=== PATIENT | male | born 1955 | race Two or more races ===

== ENCOUNTER 2020-08-13 21:02 | Emergency (ER) | payer OTHER, SELFPAY ==
[2020-08-13 21:03] VITALS: BP 155/101; PULSE 99; RESP 16; TEMP 36.6; O2SAT 96; BMI 25.9
--- NOTE | 2020-08-13 21:18 | XR_ITS ---
PROCEDURE: XR SHOULDER LT MIN 2V CLINICAL INDICATION: fall Pain COMPARISON: No exams were available for comparison FINDINGS: No fracture or dislocation. No lytic or blastic change. There is normal mineralization. Mild osteoarthritic changes are present at the acromioclavicular and glenohumeral joint. Other findings:None. IMPRESSION: No acute findings. Dictated by: Zion Harris MD 08/14/2020 07:13 Zion Harris MD in [place] 08/14/2020 07:13
--- NOTE | 2020-08-13 21:18 | XR_ITS ---
PROCEDURE: XR WRIST LT MIN 3V CLINICAL INDICATION: fall Pain COMPARISON: CR XR HAND LT MIN 3V from 08/13/2020 CR XR FOREARM LT 2V from 08/13/2020 FINDINGS: A 5 x 2 mm bony fragment is present along the dorsal and mid aspect of the wrist consistent with avulsion fracture of the triquetrum. It is displaced dorsally by approximately 2 mm. There are mild osteoarthritic changes of the wrist and hand. A cyst is present involving the lunate at 5 mm. Small calcific densities are present on both sides of the DIP joint of the 3rd finger and could be due to old avulsion fractures versus periarticular calcification. No acute fracture of the radius or ulna at the forearm.. IMPRESSION: Mildly displaced avulsion fracture of the triquetrum Other nonacute findings as described above Dictated by: Zion Harris MD 08/14/2020 07:17 Zion Harris MD in [place] 08/14/2020 07:17
--- NOTE | 2020-08-13 21:20 | HMH.EDGENADL ---
ED Disposition Clinical Impression: Occult closed fracture of scaphoid of left wrist Qualifiers: Encounter type: initial encounter Qualified Code(s): S62.002A - Unspecified fracture of navicular [scaphoid] bone of left wrist, initial encounter for closed fracture Disposition: Home, Self-Care Condition on Discharge: Fair Instructions: DI for Wrist Strain, Sprain, DI for Wrist Fracture Additional Instructions: Hours and ibuprofen every 6 hours for your pain Please call the orthopedic clinic on Saturday to make an appointment for repeat x-rays in 2 to 3 weeks If symptoms worsen, please return to the ED or follow-up with your PCP [place] tyelnol 500mg cada 4 horas y ibuprofen (motrin) cada 6 horas para gonzales dolor Por favor llame a la clinica ortopediasta el para hacer char para repetir teo x en 2-3 semanas si sintomas empeoran, por favor regrese a la fatemeh de emergencia o a gonzales doctor primario Referrals: James Maguire MD [Primary Care Provider] - Forms: Work/School Release - Critical Care Critical Care Time: No Attestation: On 08/13/20, the high probability of a clinically significant, sudden or life threatening deterioration of the following system(s) required my full and direct attention, intervention and personal management. The time I documented below is in addition to time spent performing reported procedures but includes the following listed in this critical care notation. Medical Decision Making - Medical Records Medical records reviewed: Yes: I reviewed the patient's medical records. - Lewis Inquiry Pt receiving controlled substance: No Vital Signs: 08/13/20 21:03 Temperature 97.8 F Temperature Source Oral Pulse Rate [Left Radial] 99 H Respiratory Rate 16 Blood Pressure [Right Arm] 155/101 H Blood Pressure Mean [Right Arm] 119 Blood Pressure Source [Right Arm] Automatic Cuff Blood Pressure Position [Right Arm] Sitting 02 Sat by Pulse Oximetry 96 Oxygen Delivery Method Room Air Orders (Tests/Meds): ED MEDICATIONS Discontinued Medications Generic Name Dose Route Start Last Admin Trade Name Freq PRN Reason Stop Dose Admin Acetaminophen 1,000 mg 08/13/20 21:18 Acetaminophen 500mg Tab PO 08/13/20 21:19 ONCE ONE Ibuprofen 600 mg 08/13/20 21:20 Ibuprofen 600 Mg Tablet PO 08/13/20 21:21 ONCE ONE ORDERS Category Date Time Status XR forearm LT 2V Stat Exams 08/13/20 21:18 Taken XR hand LT min 3V Stat Exams 08/13/20 21:18 Taken XR shoulder LT min 2V Stat Exams 08/13/20 21:18 Taken XR wrist LT min 3V Stat Exams 08/13/20 21:18 Taken Medical Decision Narrative: Upon presentation, patient is hemodynamically stable and nontoxic-appearing. Patient presents with left wrist injury. Differential diagnosis includes but is not limited to distal radius fracture, ulnar fracture, soft tissue contusion, scaphoid fracture. X-rays of the left shoulder, forearm, wrist, hand were obtained. Patient was given 1000 mg p.o. Tylenol and 600 mg p.o. ibuprofen for pain relief. I reviewed images. I did not identify any signs of a distal radius fracture, distal ulnar fracture, ulnar styloid fracture, shoulder injury. However, patient is tender to the scaphoid. As such, patient was placed in a wrist brace and discharged with orthopedic follow-up. I explained to the patient the need for repeat x-rays in 2 to 3 weeks. Patient was agreeable to plan. General Adult HPI - General Chief complaint: Extremity Injury, Upper Stated complaint: AO fell injured L hand Time Seen by Provider: 08/13/20 21:05 Mode of Arrival: Ambulatory Limitations: No Limitations Description of Symptoms (Recalled from ER Triage Doc. by RN): Pt reports slipping on wet floor and landing on left wrist. He c/o pain to left wrist and shoulder. No deformity present. Pt denies hitting head. - History of Present Illness HPI narrative: Patient is a 65-year-old male presenting after a fall. Patient states t
[2020-08-13 22:03] VITALS: BP 148/98; PULSE 89; RESP 16; TEMP 36.6; O2SAT 98
== END 2020-08-13 22:04 | disposition home or self-care (01) ==
PROVIDERS: Emergency Provider Emergency Medicine; PCP Family Medicine
DX: S62.002A Unspecified fracture of navicular [scaphoid] bone of left wrist, initial encounter for closed fracture (principal); W01.0XXA Fall on same level from slipping, tripping and stumbling without subsequent striking against object, initial encounter; Y92.89 Other specified places as the place of occurrence of the external cause; I10 Essential (primary) hypertension; F33.1 Major depressive disorder, recurrent, moderate; Z79.899 Other long term (current) drug therapy
CPT/HCPCS: 73030; 73090; 73110; 73130; 99282

== ENCOUNTER → 2020-09-09 08:44 | Outpatient (CLI) | payer OTHER, SELFPAY ==
--- NOTE | 2020-09-09 08:52 | XR_ITS ---
PROCEDURE: XR WRIST LT MIN 3V CLINICAL INDICATION: Left wrist fracture follow up COMPARISON: CR XR WRIST LT MIN 3V from 08/13/2020 FINDINGS: Triquetrum avulsion fracture fragment noted at the mid wrist region dorsally unchanged. No change in the small lunate cyst. The joint spaces are well-preserved. No significant degenerative/arthritic changes. No erosive changes evident. Other findings:None. IMPRESSION: No change triquetrum avulsion fracture Dictated by: Zion Harris MD 09/09/2020 12:33 Zion Harris MD in [place] 09/09/2020 12:33
== END ==
PROVIDERS: Visit Provider Orthopaedic Surgery
DX: S62.102A Fracture of unspecified carpal bone, left wrist, initial encounter for closed fracture (principal)
CPT/HCPCS: 73110

== ENCOUNTER 2020-09-09 09:37 | Outpatient (RCR) | payer OTHER, SELFPAY | END 2020-09-09 10:45 | disposition home or self-care (01) | LOC: OT 09:37 | PROVIDERS: Visit Provider Orthopaedic Surgery | DX: S62.92XA Unspecified fracture of left hand, initial encounter for closed fracture (principal) | CPT/HCPCS: 97763 ==

== ENCOUNTER 2020-10-07 11:00 | Outpatient (RCR) | payer OTHER, SELFPAY ==
--- NOTE | 2020-09-14 15:00 | HMH.OTOPEV ---
OT Inpatient Evaluation Rehab OT Outpatient Eval Start: 09/14/20 14:30 Freq: Status: Active Protocol: Document 09/14/20 14:35 DEMARCONAE (Rec: 09/14/20 14:51 WILYMAE [id number]) Electronically Signed By Chica Polo OT 09/14/20 14:35 Outpatient Therapy Subjective History Subjective History 65 year old male referred to skilled OP OT for left wrist fracture and left shoulder pain. Patient verbalize having a fall at work, unknown date. 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 Relieved By OTC Meds Symptoms Aggravated By Physical Activity Prior Functional Limitations None Current Functional Limitations Reaching,Lifting,Recreation Activity Symptom Description Constant and Continuous Level of pain today (0-10) 5 Pain scale - at its best (0-10) 5 Pain scale - at its worst (0-10) 5 Shoulder/Elbow Eval Shoulder Objective Measurements Shoulder ROM Left Shoulder Abduction Active Range of 80 Motion (degrees) Shoulder Flexion Active Range of Motion 70 (degrees) Query Text: Shoulder External Rotation Active Range 50 of Motion (degrees) Shoulder Internal Rotation Active Range 40 of Motion (degrees) pain with active ROM shoulder exam left standard Shoulder MMT Shoulder Abduction Strength Grade 2+ Poor+ Shoulder Extension Strength Grade 2+ Poor+ Shoulder Flexion Strength Grade 2+ Poor+ Shoulder Horizontal Abduction Strength 2+ Poor+ Grade Shoulder Horizontal Adduction Strength 2+ Poor+ Grade Infraspinatus/Teres Minor Strength Grade 2+ Poor+ Shoulder External Rotation Strength 2+ Poor+ Grade Shoulder Internal Rotation Strength 2+ Poor+ Grade Shoulder Special Tests impingement sign present shoulder exam left standard Shoulder Etsevez-Kirby Impingement Positive Left Test Elbow Objective Measurements Wrist/Hand Eval Wrist Range of Motion Left Wrist Extension Active Range of Motion ( 45 degrees) Wrist Flexion Active Range of Motion ( 50 degrees) Wrist Radial Deviation Active Range of 10 Motion (degrees) Wrist Ulnar Deviation Active Range of 20 Motion (degrees) Forearm Supination Active Range of 90 Motion (degrees) Forearm Pronation Active Range of Motion 90 (degrees) Tent Assembler/Pinch Strength Right Tent Assembler Strength Measurement (lbs) 80 Left Tent Assembler Strength Measurement (lbs) 35
== END 2020-10-07 11:05 | disposition home or self-care (01) ==
LOC: OT 11:00
PROVIDERS: Visit Provider Orthopaedic Surgery
DX: S62.92XA Unspecified fracture of left hand, initial encounter for closed fracture (principal); M25.512 Pain in left shoulder
CPT/HCPCS: 97014; 97110; 97140; 97165; 97530; G0283

== ENCOUNTER → 2020-10-11 13:48 | Outpatient (CLI) | payer OTHER, SELFPAY ==
--- NOTE | 2020-10-11 13:54 | XR_ITS ---
PROCEDURE: XR WRIST LT MIN 3V CLINICAL INDICATION: LT wrist fracture Follow-up fracture COMPARISON: CR XR WRIST LT MIN 3V from 08/13/2020 CR XR WRIST LT MIN 3V from 09/09/2020 FINDINGS: Previously noted avulsion fracture along the dorsal aspect of the wrist of the triquetrum is less apparent but could be related to the degree of rotation. There is a small triangular shaped density along the dorsal aspect of the wrist overlying the bony structures likely related to the avulsion fracture. No other significant anomalies are evident. Cystic lesion of the lunate once again noted unchanged. IMPRESSION: Triquetrum avulsion fracture fragment is less apparent but may be related to the degree of wrist rotation. Continued follow-up suggested Dictated by: Zion Harris MD 10/11/2020 15:38 Zion Harris MD in [place] 10/11/2020 15:38
== END ==
PROVIDERS: Visit Provider Orthopaedic Surgery
DX: S62.102A Fracture of unspecified carpal bone, left wrist, initial encounter for closed fracture (principal)
CPT/HCPCS: 73110

== ENCOUNTER → 2020-10-18 14:29 | Outpatient (CLI) | payer OTHER, SELFPAY ==
--- NOTE | 2020-10-18 14:36 | MR_ITS ---
PROCEDURE INFORMATION: Exam: MR Left Upper Extremity Joint Without Contrast; Shoulder Exam date and time: 10/18/2020 2:36 PM Age: 65 years old Clinical indication: Injury or trauma; Work related; Crushing; Arm, upper; Left; Injury date: About 2 months ago; Patient HX: Patient feel at work, pain in shoulder since fall---. Pain x 2 months---. Unable to raise arm---. Weakness---. No prior; Additional info: Evaluate for rotator cuff TECHNIQUE: Imaging protocol: MR of the Left upper extremity without contrast. Exam focused on the shoulder. COMPARISON: No relevant prior studies available. FINDINGS: Bones and cartilage: Type 2 acromion with curved undersurface and no subacromial enthesophyte. No os acromiale. Humeral head cysts located laterally measuring 14 mm. No concerning marrow signal alterations. No muscle atrophy. Line neurovascular structures are grossly unremarkable. Joint spaces: Hypertrophic degenerative changes of the acromioclavicular joint. Moderate amount of fluid within the acromioclavicular joint. Large amount of glenohumeral joint fluid with synovitis. No gross labral tearing. Long head of the biceps tendon is normal in position and appearance. Glenoid labrum: See Joint spaces finding. Supraspinatus tendon: Full thickness full width tear of the supraspinatus tendon with differential retraction of the torn tendon fibers. This extends to involve the anterior most fibers of the infraspinatus tendon. Infraspinatus tendon: Otherwise predominantly high-grade partial-thickness tearing of the infraspinatus tendon. Subscapularis tendon: Unremarkable. No evidence of tear. Teres minor tendon: Unremarkable. No evidence of tear. Tendon of biceps brachii: See Joint spaces finding. Glenohumeral ligaments: Unremarkable. Muscles: See Bones and cartilage finding. Soft tissues: See Bones and cartilage finding. IMPRESSION: 1. Full thickness full width tear of the supraspinatus tendon with differential retraction of the torn tendon fibers. This extends to involve the anterior most fibers of the infraspinatus tendon. 2. Otherwise predominantly high-grade partial-thickness tearing of the infraspinatus tendon. 3. Large glenohumeral joint effusion with synovitis. 4. Moderate to severe hypertrophic degenerative changes of the acromioclavicular joint.
== END ==
PROVIDERS: Visit Provider Orthopaedic Surgery
DX: S49.92XD Unspecified injury of left shoulder and upper arm, subsequent encounter (principal); Y99.0 Civilian activity done for income or pay
CPT/HCPCS: 73221

== ENCOUNTER 2021-01-18 14:00 | Outpatient (RCR) | payer OTHER, SELFPAY ==
--- NOTE | 2020-11-11 15:51 | HMH.OTOPEV ---
OT Inpatient Evaluation Rehab OT Outpatient Eval Start: 11/11/20 14:58 Freq: Status: Active Protocol: Document 11/11/20 15:44 [facility] (Rec: 11/11/20 15:51 [facility] [id number]) Electronically Signed By Vasquez Lopez OT 11/11/20 15:44 Outpatient Therapy Subjective History Subjective History Pt is a 65 year old male who reports to therapy for initial evaluation to Left shoulder. Pt fell at work on 08/19/20 resulting in L wrist fx and L shoulder injury. Pt was seen previously for left wrist injury. However, pt's pain in left shoulder has progressively become worse. Pt did see ortho and received a MRI diagnosing him with a full thickness tear of supraspintatus and a partial tear of infraspinatus. Pt does demosntrates with decreased AROM and strength at left shoulder. Pt will continue to be seen in order to address all deficits. 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,Stiff,Weakness Symptom Type Ache,Throb,Sharp,Dull Symptoms Relieved By Nothing Symptoms Aggravated By Physical Activity,Lifting Prior Functional Limitations None Current Functional Limitations Reaching,Lifting,Housework, Sleeping,Recreation Activity Symptom Description Constant but Variable Level of pain today (0-10) 7 Pain scale - at its best (0-10) 5 Pain scale - at its worst (0-10) 8 Shoulder/Elbow Eval Shoulder Objective Measurements Shoulder ROM Left Shoulder Abduction Active Range of 115 degrees Motion (degrees) Shoulder Flexion Active Range of Motion 130 degrees (degrees) Query Text: Shoulder External Rotation Active Range 70 degrees of Motion (degrees) Shoulder Internal Rotation Active Range 50 degrees of Motion (degrees) Shoulder MMT Shoulder Abduction Strength Grade 3+ Fair+ Shoulder Extension Strength Grade 3+ Fair+ Shoulder Flexion Strength Grade 3+ Fair+ Shoulder External Rotation Strength 3+ Fair+ Grade Shoulder Internal Rotation Strength 3+ Fair+ Grade Shoulder Strength Patient Testing Sitting Position Elbow Objective Measurements OT Outpatient Assessment Prognosis Rehab Potential
--- NOTE | 2020-12-14 15:47 | HMH.RHREAS ---
Rehab Reassessment Rehab OP Re-assessment Start: 12/14/20 15:40 Freq: Status: Active Protocol: Document 12/14/20 15:41 BLANCA (Rec: 12/14/20 15:47 BLANCA [id number]) Electronically Signed By Vasquez Lopez OT 12/14/20 15:41 Rehab Re-assessment Subjective Subjective Still hurts bad. Objective Objective Notes Pt continues to be seen twice a week in order to address left shoulder deficits. Pt engages in L shoulder AROM, AAROM, and strengthening exercises. Modalities are provided in order to decrease pain/inflammation. Assessment Progress Assessment Slower Than Expected Assessment Notes Pt demonstrates minimal improvement since starting therapy. He is reporting pain at a 8/10 at worst. His AROM is still painful and limited. Strength has improved slightly. Pt does return to doctor on December 20 to be re -evaluated. Current AROM L shoulder Flex: 130 degrees Abd: 110 degrees ER: 90 degrees IR: 50 degrees Patient goals met ST and 5 Goals Not Met See below Revised Goals ST, 2, and 4 LT-5 Plan Plan Continue with OT plan of care at this time. Frequency of Therapy 2x's a week Duration of therapy 4 more weeks Time and Billing Re-Eval Time 10 Re-Eval Billing Units 1 PHYSICIAN CERTIFICATION: I certify the specified therapy services for Melchor Ley are required, authorized, and reviewed every 30 days.
--- NOTE | 2021-01-12 15:01 | HMH.RHREAS ---
Rehab Reassessment Rehab OP Re-assessment Start: 12/14/20 15:40 Freq: Status: Active Protocol: Document 01/12/21 14:50 DEMARCONAE (Rec: 01/12/21 14:52 WILYMAE [id number]) Electronically Signed By Chica Polo OT 01/12/21 14:50 Rehab Re-assessment Subjective Subjective I have been using it a little bit. Objective Objective Notes Pt continues to be seen twice a week in order to address left shoulder deficits. Pt engages in L shoulder AROM, AAROM, and strengthening exercises. Modalities are provided in order to decrease pain/inflammation. Patient verbalize during re-assessment that his right shoulder has been hurting worse than his left shoulder during work activities. However Patient verbalize making modifications at work with his left shoulder to decrease pain at this time. Patient stated to have physician order to request off of work for a week to rest his right shoulder. Assessment Progress Assessment Progressing as Expected Assessment Notes L UE shoulder AROM flex: 150 abd:140 ER:90 IR: 70 Strength: 4/5 Pain at worst 5/10 Patient goals met All STGs have been met Goals Not Met N/a Revised Goals L UE shoulder AROM flex: 160 abd: 150 ER:90- consistent IR: 70-consisent 4 to 4+/5 4/10 pain at worst Plan Plan Continue POC Frequency of Therapy 2x/wk Duration of therapy 4 weeks Time and Billing Re-Eval Time 10 Re-Eval Billing Units 1 PHYSICIAN CERTIFICATION: I certify the specified therapy services for Melchor Ley are required, authorized, and reviewed every 30 days.
== END 2021-01-18 14:05 | disposition home or self-care (01) ==
LOC: OT 14:00
PROVIDERS: Visit Provider Orthopaedic Surgery
DX: M75.102 Unspecified rotator cuff tear or rupture of left shoulder, not specified as traumatic (principal)
CPT/HCPCS: 97014; 97035; 97110; 97140; 97164; 97166; 97530; G0283